=== PATIENT | male | born 1945 | race Caucasian/White ===

== ENCOUNTER 2018-12-11 03:33 | Emergency (ER) | payer OTHER ==
[2018-12-11] MEDS: APIXABAN 5 MG TABLET PO (05:38)
== END 2018-12-11 06:01 | disposition home or self-care (01) ==
LOC: E/R 03:33
DX: I82.4Z2 Acute embolism and thrombosis of unspecified deep veins of left distal lower extremity (principal)
CPT/HCPCS: 93970; 99284-25